=== PATIENT | female | born 1980 | race Caucasian/White ===

== ENCOUNTER 2023-02-13 07:18 | Emergency (ER) | payer BC ==
[2023-02-13] MEDS ORDERED: Boostrix 0.5 ML (Tdap) VIAL (>/=7 yrs of age) ONE (07:51)
== END 2023-02-13 08:05 | disposition home or self-care (01) ==
LOC: CSHERS 07:18
DX: L03.012 Cellulitis of left finger (principal)
CPT/HCPCS: 90471; 90715; 99283